=== PATIENT | male | born 1955 | race Caucasian/White ===

== ENCOUNTER 2018-01-04 19:14 | Emergency (ER) | payer OTHER ==
[~2018-01-04 19:14] MED LIST: ISOVUE-370 76%-LOCM 1 ML ONE
[2018-01-04 19:57] LABS: #Basophils 0.1 thou/uL (0.0-0.2); #Eosinphils 0.3 thou/uL (0.0-0.7); #Monocytes 0.5 thou/uL (0.11-0.59); #Neutrophils 4.4 thou/uL (1.40-6.50); %Basophils 1.1 % (0.0-1.0); %Eosinophils 3.5 % (0.0-10.0); %Lymphocytes 42.6 % (21.0-51.0); %Monocytes 5.7 % (0.0-10.0); %Neutrophils 47.2 % (42.0-75.0); Hemoglobin 14.6 g/dL (14.0-18.0); Mean Corpuscular HGB CONC 33.8 g/dL (32.0-36.0); Mean Corpuscular Hemoglobin 29.8 pg (27.0-31.0); Mean Corpuscular Volume 88.2 fL (78.0-98.0); Mean Platelet Volume 6.2 fL (7.4-10.4); Platelet Count 245 thou/uL (130-400); RBC Distribution Width 11.6 % (11.5-14.5); Red Blood Cell (RBC) Count 4.89 mill/uL (4.70-6.10); White Blood Cell (WBC) Count 9.3 thou/uL (4.8-10.8)
[2018-01-04 20:07] LABS: ALT (SGPT) 18 U/L (8-55); AST (SGOT) 24 U/L (5-34); Albumin 4.3 g/dL (3.5-5.0); Alkaline Phosphatase 117 U/L (40-150); Anion Gap 15 mmol/L (10-20); BUN (Urea Nitrogen) 7 mg/dL (8.4-25.7); Bilirubin, Total 0.4 mg/dL (0.2-1.2); CK (CPK) 181 U/L (30-200); Calc. Creatinine Clearance 0 mL/min (70-130); Calcium 8.9 mg/dL (7.8-10.44); Carbon Dioxide 20 mmol/L (22-29); Chloride 102 mmol/L (98-107); Estimated GFR-MDRD 90; Globulin 3.4 g/dL (2.4-3.5); Glucose 106 mg/dL (70-105); Lipase 22 U/L (8-78); Potassium 4.1 mmol/L (3.5-5.1); Protein, Total 7.7 g/dL (6.0-8.3); Sodium 133 mmol/L (136-145)
[2018-01-04 20:20] LABS: Bilirubin Negative (Negative); Blood, Urine Negative (Negative); Clarity CLEAR (Clear); Glucose, Urine (Dipstick) Negative (Negative); Leukocyte Negative (Negative); Nitrite Negative (Negative); Protein, Urine (Dipstick) Negative (Neg-Trace); Specific Gravity, Urine 1.003 (1.002-1.036); Urobilinogen 0.2 mg/dL (0.2-1.0)
--- NOTE | 2018-01-04 20:52 | CT ---
CT ABDOMEN AND PELVIS WITH IV CONTRAST: 01/04/18 Multiple axial tomograms obtained through the abdomen and pelvis with IV enhancement. Oral contrast w as not given. INDICATIONS: Abdominal pain. The lung bases are clear. The liver, spleen and pancreas are unremarkable. Adrenal glands appear normal. There is a 3 to 4 mm nonobstructing calculus in the lower pole collecting structures of the right ki dney. Kidneys otherwise unremarkable. No hydronephrosis or ureteral calculus identified. Urinary blad rony unremarkable. Small bowel loops appear normal. Colon unremarkable. Aorta normal caliber. No adeno luna. Review of the osseous structures reveal severe degenerative changes at the left hip. There is subchon dral cystic changes in the femoral head and prominent spurring from the femoral head and acetabulum o n the left. IMPRESSION: 1. No acute intra-abdominal process. 2. Severe degenerative changes at the left hip. POS: CALVIN
[2018-01-04] MEDS ORDERED: Cyclobenzaprine 10 MG TAB ONE (21:01)
== END 2018-01-04 21:10 | disposition home or self-care (01) ==
LOC: ERS 19:14
DX: R10.32 Left lower quadrant pain (principal); I10 Essential (primary) hypertension; F17.220 Nicotine dependence, chewing tobacco, uncomplicated
CPT/HCPCS: 74177; 80053; 81003; 82550; 83690; 85025

== ENCOUNTER 2020-01-02 20:53 | Observation (INO) | payer OTHER, SELFPAY ==
[2020-01-02 22:05] LABS: #Monocytes 0.4 thou/uL (0.11-0.59); #Neutrophils 5.4 thou/uL (1.40-6.50); %Basophils 0.3 % (0.0-1.0); %Eosinophils 0.4 % (0.0-10.0); %Lymphocytes 14.6 % (21.0-51.0); %Monocytes 5.9 % (0.0-10.0); %Neutrophils 78.8 % (42.0-75.0); Hemoglobin 15.3 g/dL (14.0-18.0); Mean Corpuscular HGB CONC 32.7 g/dL (32.0-36.0); Mean Corpuscular Hemoglobin 30.3 pg (27.0-31.0); Mean Corpuscular Volume 92.7 fL (78.0-98.0); Mean Platelet Volume 7.1 fL (7.4-10.4); Platelet Count 191 thou/uL (130-400); RBC Distribution Width 11.7 % (11.5-14.5); Red Blood Cell (RBC) Count 5.05 mill/uL (4.70-6.10); White Blood Cell (WBC) Count 6.9 thou/uL (4.8-10.8)
[2020-01-02 22:17] LABS: ALT (SGPT) 16 U/L (8-55); AST (SGOT) 16 U/L (5-34); Albumin 3.9 g/dL (3.4-4.8); Alkaline Phosphatase 99 U/L (40-110); Anion Gap 14 mmol/L (10-20); BUN (Urea Nitrogen) 10 mg/dL (8.4-25.7); Bilirubin, Total 0.6 mg/dL (0.2-1.2); CK (CPK) 80 U/L (30-200); Calc. Creatinine Clearance 0 mL/min (70-130); Calcium 8.7 mg/dL (7.8-10.44); Carbon Dioxide 22 mmol/L (23-31); Chloride 108 mmol/L (98-107); Estimated GFR-MDRD 88; Globulin 3.1 g/dL (2.4-3.5); Glucose 114 mg/dL (80-115); Potassium 4.1 mmol/L (3.5-5.1); Sodium 140 mmol/L (136-145)
[2020-01-02] MEDS ORDERED: hydrALAZINE 20 MG/ML VIAL SLOW IVP PRN (23:17)
[2020-01-02] MEDS ORDERED: Labetalol HCl 100 MG/20 ML VIAL SLOW IVP PRN (23:17)
[2020-01-02] MEDS ORDERED: Aspirin Chewable 81 MG TAB PO SCH (23:30)
--- NOTE | 2020-01-03 00:15 | HP ---
PRIMARY CARE PHYSICIAN: None. CHIEF COMPLAINT: Dizziness. HISTORY OF PRESENT ILLNESS: The patient is a 64-year-old male with past medical history significant for hypertension, alcohol abuse, and tobacco abuse, who presents to the ER with the above complaint. The patient reports developing acute onset of dizziness while ambulating at home yesterday evening, around 1800. He reports that it felt like his legs were going to fall out. He denies any headache, dysphagia, dysarthria, or focal weakness. He drank a couple beers and then went to bed, as he usual does each night His symptoms resolved. He reports after waking up the following morning, his symptoms reappeared. He also reports some associated diaphoresis. He denies any chest pain or heart palpitations. Denies any shortness of breath or cough. He denies any abdominal pain, nausea, vomiting, or diarrhea. He denies any urinary symptoms. He has not had any recent fever or chills or exposure to anybody with COVID. Because of his dizziness, it was persistent, he went to [facility]. The patient presented afebrile with an elevated blood pressure of 200/106 with a normal pulse, normal respiration, and normal SpO2. He was an NIH of 1 with some left upper extremity ataxia. CT of the head was negative and his CMP and CBC and UA were unremarkable. The patient was given meclizine, hydralazine, and labetalol , and he was transferred to the [facility]. In the [facility], he was found to have an NIH of zero. He was given a full dose aspirin. His blood pressure was 160/101. His EKG was sinus rhythm with some PACs. PAST MEDICAL HISTORY: 1. Hypertension. 2. Alcohol abuse. 3. Tobacco abuse. PAST SURGICAL HISTORY: None. SOCIAL HISTORY: The patient lives in [place] with his mother. He drinks anywhere from a 12 to 18 pack of beer a day. He smokes approximately one to one and half packs per week. He dips three cans of snuff per day. He denies any illicit drug use. 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 FAMILY HISTORY: Contributory for cardiac disease. ALLERGIES: NO KNOWN DRUG ALLERGIES. HOME MEDICATIONS: None. REVIEW OF SYSTEMS: All review of systems are negative unless otherwise stated in the HPI. PHYSICAL EXAMINATION: VITAL SIGNS: 98.6 temperature, 157/84 blood pressure, 61 pulse, 22 respirations , and 97% on room air. 0/10 pain. CONSTITUTIONAL: The patient is alert and oriented to person, place, and time. He appears comfortable, nontoxic. HEAD: Atraumatic and normocephalic. EYES: PERRLA. Extraocular muscles intact. Sclerae nonicteric. ENT: Tympanic membranes intact bilaterally. EACs clear bilaterally. Nares patent bilaterally. Oropharynx is clear. Uvula midline. Moist mucous membranes. No oral lesions. NECK: Supple. Trachea midline. No cervical adenopathy. No JVD. Full range of motion. No neck stiffness. No carotid bruits. RESPIRATORY/CHEST: Respirations are even and unlabored. Clear to auscultation. No wheezes, rhonchi, or rales. CARDIOVASCULAR: S1 and S2 appreciated. No murmurs, rubs, or gallops. ABDOMEN: Soft and nontender. Active bowel sounds. No guarding. No rigidity. No rebound tenderness. Negative Rovsing sign. Negative Elizabeth sign. No abdominal bruit auscultated. BACK: Full range of motion. No central spinous tenderness. No CVA tenderness. UPPER EXTREMITIES: Bilateral upper extremities, full range of motion. Strength normal. Sensation intact. Palpable radial pulses. LOWER EXTREMITIES: Full range of motion. Strength normal. Sensation intact. Palpable pedal pulses. No swelling. NEURO: The patient is alert and oriented to person, place, and time. Cranial nerves 2 through 12 are intact. He has no focal motor deficits. Steady gait. NIH of zero. PSYCHIATRIC: Normal affect. Alert and oriented to person, place, and time. LABS AND DIAGNOSTICS: CT of the brain was negative for any acute intracranial process. EKG is normal sinus rhythm with some PACs. Initial troponin 0.018. Sodium 140, potassium 4.1, chloride 108, carbon dioxide 22, BUN 10, creatinine 0.88, glucose 114, calcium 8.7, total bilirubin 0.6, AST 16, ALT 16, alkaline phosphatase 99, and albumin 3.9. WBC 6.9, hemoglobin 15.3, hematocrit 46.8, and platelets 191. IMPRESSION AND PLAN: 1. Dizziness, rule out stroke. We will admit the patient to the stroke floor, observation status. Expected length of stay less than two midnights. The patient presented hypertensive with a blood pressure of 200/106. NIH of 1 for left upper extremity ataxia. CT of the brain was negative. CMP and CBC and UA were unremarkable. The patient received hydralazine and labetalol with improvement in blood pressure with an SBP of 160. We will perform stroke workup. We will order MRI, carotid Doppler, and echocardiogram. We will check TSH, fasting lipid, magnesium level, urine drug screen, trend troponins, BNP, folate, and B12. We will continue aspirin and start a high intensity statin. We will consult Neurology and Physical Therapy. We will perform neuro checks and NIH scale. 2. Hypertensive urgency. The patient presented to the [facility] with a blood pressure of 200/106, improved on labetalol and hydralazine IV push. Upon presentation at the [facility], blood pressure, SBP was in the 160s. NIH was zero. EKG showed normal sinus rhythm, no LVH. Creatinine was 0.88. We will allow permissive hypertension. We will add p.r.n. labetalol and hydralazine as needed. We will get an echocardiogram and continue to monitor blood pressure. 3. Hypertension. We will monitor blood pressures and will add medications as needed. 4. Alcohol abuse. The patient reports a history of 12 to 18 beers per day. The patient's last drink was last night. The patient is unwilling to quit. We will counseling center manager on alcohol cessation. We will start the Álvaro nursing protocol. We will check a folate, B12, and Mag level. 5. Tobacco abuse. The patient smokes approximately one to one and half packs per week. The patient gives three cans of snuff per week. The patient is unwilling to quit. We will counseling center manager on tobacco cessation. Currently refuses NRT therapy. 6. Sequential compression devices for deep venous thrombosis prophylaxis. Pepcid for gastrointestinal prophylaxis. The patient is a full code. His mother Janee Medina is his MPOA. He does not know her phone number. 7. Discussed this case with Dr. Morse. Job ID: [id number] [facility]ITAL[facility]yril
[2020-01-03 02:43] LABS: Cardiac Risk 3.1 (Less than 4.5); Magnesium 2.2 mg/dL (1.6-2.6)
[2020-01-03 02:47] LABS: Thyroid Stimulating Hormone 5.2997 uIU/mL (0.35-4.94)
[2020-01-03 02:48] VITALS: BMI 28.2
[2020-01-03 02:51] LABS: Troponin I 0.026 ng/mL (< 0.028)
--- NOTE | 2020-01-03 07:57 | ULT ---
BILATERAL CAROTID DUPLEX ULTRASOUND: HISTORY: Weakness TECHNIQUE: Grayscale, color-flow and spectral Doppler ultrasound imaging of the extracranial carotid artery syst ems was performed bilaterally. FINDINGS: A mild amount of plaque is seen bilaterally. The peak systolic velocity in the right ICA measures 76 cm/s with an end-diastolic velocity of 8 cm/s and a systolic ratio of 0.85. The peak systolic velocity in the left ICA measures 48 cm/s with an end-diastolic velocity of 9 c m/s and a systolic ratio of 0.54. Flow in both vertebral arteries remains antegrade. IMPRESSION: No evidence of hemodynamically significant stenosis.
[2020-01-03] MEDS: Aspirin 81 mg Enteric Coated Tablet PO SCH (08:43)
[2020-01-03 09:16] LABS: Amphetamine Not Detected (NotDetected); Barbiturates Screen Not Detected (NotDetected); Benzodiazepine Screen Not Detected (NotDetected); Cocaine Metabolite Screen Not Detected (NotDetected); Medtox Control Line Valid? VALID (VALID); Medtox Reader # READER 4; Methadone Not Detected (NotDetected); Methamphetamine Not Detected (NotDetected); Opiate Screen Not Detected (NotDetected); Oxycodone Screen Not Detected (NotDetected); Phencyclidine (PCP) Not Detected (NotDetected); THC/Cannabinoid Screen Not Detected (NotDetected); Tricyclic Screen Not Detected (NotDetected)
--- NOTE | 2020-01-03 12:10 | MRI ---
MRI BRAIN WITHOUT CONTRAST: HISTORY: TIA FINDINGS: No restricted diffusion is seen.The ventricular size is appropriate and the basilar cisterns are moya nt. No evidence of acute infarct, hemorrhage, midline shift or abnormal extra-axial fluid collections is seen. There is mucosal disease in the paranasal sinuses. IMPRESSION: No evidence of acute intracranial process.
--- NOTE | 2020-01-03 12:14 | CON ---
NEUROLOGY CONSULTATION DATE OF CONSULTATION: 01/03/2020 REASON FOR CONSULTATION: Dizziness. HISTORY OF PRESENT ILLNESS: Mr. Medina is a 64-year-old male with medical history significant for alcohol abuse, hypertension, tobacco abuse presented to the emergency room with a history of acute onset dizziness yesterday evening around 6 p.m. According to the patient, while he was walking in his home yesterday, he felt as things were moving back and forth and [id number] and he was unable to walk in a straight line. Per patient, he drank couple of beers and went to bed. In the morning, the symptoms reappeared and he decided to come to the emergency room for further evaluation. The patient denies any focal weakness, focal paresthesias, nausea, vomiting, headache, chest pain, abdominal pain, loss of vision, blurred vision, vertigo, room spinning in front of his eyes, abnormal body movements or loss of consciousness associated with the episode. The patient denies any recent illness or fever. In the emergency room, head CT was done, which was negative. He was given meclizine, labetalol, hydralazine because his blood pressure was 150/101 and admitted to the stroke floor for further evaluation to rule out posterior circulation, TIA versus stroke. REVIEW OF SYSTEMS: All 10 systems were reviewed and were negative except pertinent positives and negatives mentioned in the HPI. PAST MEDICAL HISTORY: Hypertension. PAST SURGICAL HISTORY: None. SOCIAL HISTORY: The patient lives with his mother. Drinks 12-18 pack of beer a day. Smokes one and half packs per day. He dips three cans of snuff per day. Denies illegal drug use. 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 FAMILY HISTORY: No family history of coronary artery disease. ALLERGIES: NO KNOWN DRUG ALLERGIES. HOME MEDICATIONS: None. PHYSICAL EXAMINATION: VITAL SIGNS: Blood pressure 150/80, pulse 80, respiratory rate 18. HEENT: Atraumatic, normocephalic. NECK: Supple. ABDOMEN: Soft. CVS: Regular rate and rhythm. CHEST: Clear. NEUROLOGIC: Mental status; the patient is alert and oriented to person, place, and time. Speech is clear. Fund of knowledge is appropriate. Recent and remote memory intact. Cranial nerves 2 through 12 intact. Sensory, decreased sensation to pinprick and light touch bilaterally. Cerebellar, finger-nose testing intact. Motor, muscle tone and bulk are normal. Strength 5/5 bilaterally. Gait deferred due to patient's safety reasons. LABORATORY DATA: I reviewed the head CT which was negative for acute intracranial process. I also reviewed the carotid Dopplers which were negative for hemodynamically significant stenosis. ASSESSMENT AND PLAN: Mr. Cash Medina is consulted for acute-onset dizziness in the setting of hypertensive emergency. He does have risk factors for stroke. Continue aspirin and recommend high-intensity statin for secondary stroke prevention. Carotid Dopplers reviewed which were negative for hemodynamically significant stenosis. Permissive control of blood pressure at this time. Recommend MRI brain to rule out acute intracranial process. Telemetry, 2D echo to evaluate for left ventricular ejection fraction and to rule out cardioembolic source. Continue home medication. Continue medical management per primary team. Check fasting lipid panel, hemoglobin A1c and TSH. The patient counseled about alcohol and nicotine abuse. DVT prophylaxis. PT/OT/Speech. We will continue to follow. Thank you for the consult. Job ID: [id number] MTDD
[2020-01-03] MEDS ORDERED: Meclizine HCl 25 MG TAB PO SCH (14:45)
[2020-01-03] MEDS ORDERED: Amlodipine 10 MG TAB PO SCH (17:45)
[2020-01-03] MEDS ORDERED: Lisinopril 20 MG TAB PO SCH (17:45)
[2020-01-03] MEDS ORDERED: Atorvastatin Calcium 40 MG TAB PO SCH (21:00)
[2020-01-03] MEDS ORDERED: Erythromycin Base 0.5% Oint 1 GM TUBE EA EYE SCH (21:00)
[2020-01-03] MEDS: Meclizine HCl 25 MG TAB PO SCH (21:03)
[2020-01-04] MEDS: Meclizine HCl 25 MG TAB PO SCH (05:47)
--- NOTE | 2020-01-04 06:34 | PDOC.HOSPP ---
- Subjective Encounter Date: 01/03/20 Encounter Time: 10:00 Subjective: pt up in bed no complains - Objective Vital Signs & Weight: Vital Signs (12 hours) Temp Pulse Resp BP BP BP Pulse Ox 01/04/20 04:38 97.9 F 65 18 125/72 96 01/04/20 00:15 122/63 01/04/20 00:02 97.9 F 68 20 122/63 97 01/03/20 21:05 134/65 01/03/20 20:13 98.1 F 74 16 134/65 97 Weight Weight 202 lb 8 oz I&O: 01/02/20 01/03/20 01/04/20 06:59 06:59 06:59 Intake Total 120 1280 Balance 120 1280 Result Diagrams: 01/02/20 21:30 01/02/20 21:30 Hospitalist ROS - Review of Systems Cardiovascular: denies: chest pain, palpitations, orthopnea, paroxysmal noc. dyspnea, edema, light headedness, other Gastrointestinal: denies: nausea, vomiting, abdominal pain, diarrhea, constipation, melena, hematochezia, other Genitourinary: denies: dysuria, frequency, incontinence, hematuria, retention, other - Medication Medications: Active Medications Generic Name Dose Route Start Last Admin Trade Name Freq PRN Reason Stop Dose Admin Aspirin 81 mg 01/03/20 09:00 01/03/20 08:43 Ecotrin PO 81 mg DAILY MEGHAN Administration Atorvastatin Calcium 40 mg 01/03/20 21:00 01/03/20 21:02 Lipitor PO 40 mg HS MEGHAN Administration Meclizine HCl 25 mg 01/03/20 22:00 01/04/20 05:47 Antivert PO 25 mg Q8HR MEGHAN Administration Pantoprazole Sodium 40 mg 01/03/20 09:00 01/03/20 08:43 Protonix PO 40 mg DAILY MEGHAN Administration - Exam Neck: negative: supple, symmetric, no JVD, no thyromegaly, no lymphadenopathy, no carotid bruit, JVD Heart: negative: RRR, no murmur, no gallops, no rubs, normal peripheral pulses, irregular, diminshed peripheral pulses, murmur present, II/IV, III/IV Respiratory: negative: CTAB, no wheezes, no rales, no ronchi, normal chest expansion, no tachypnea, normal percussion, rales, rhonchi, tachypneic, wheezes Gastrointestinal: negative: soft, non-tender, non-distended, normal bowel sounds , no palpable masses, no hepatomegaly, no splenomegaly, no bruit, no guarding, no rigidity, tender to palpation, distended, diminished bowl sounds, voluntary guarding Hosp A/P (1) Alcohol abuse Code(s): F10.10 - ALCOHOL ABUSE, UNCOMPLICATED Status: Acute (2) Dizziness Code(s): R42 - DIZZINESS AND GIDDINESS Status: Acute (3) HTN (hypertension) Code(s): I10 - ESSENTIAL (PRIMARY) HYPERTENSION Status: Acute (4) Vitamin B12 deficiency Code(s): E53.8 - DEFICIENCY OF OTHER SPECIFIED B GROUP VITAMINS Status: Acute (5) Hypertensive emergency Code(s): I16.1 - HYPERTENSIVE EMERGENCY Status: Acute - Plan mri ordered, echo ordered. will continue asa/stain for now. pt educated not to drink alcohol or chew tobacco.
[2020-01-04 07:46] VITALS: BP 161/75; TEMP 98.2
--- NOTE | 2020-01-04 08:41 | PDOC.HOSPP ---
- Subjective Encounter Date: 01/03/20 Encounter Time: 10:00 Subjective: pt up in bed no complains - Objective Vital Signs & Weight: Vital Signs (12 hours) Temp Pulse Resp BP BP BP Pulse Ox 01/04/20 07:45 98.2 F 66 16 161/75 H 98 01/04/20 04:38 97.9 F 65 18 125/72 125/72 96 01/04/20 00:15 122/63 01/04/20 00:02 97.9 F 68 20 122/63 97 01/03/20 21:05 134/65 Weight Weight 202 lb 8 oz I&O: 01/03/20 01/04/20 01/05/20 06:59 06:59 06:59 Intake Total 120 1580 Balance 120 1580 Result Diagrams: 01/02/20 21:30 01/02/20 21:30 Hospitalist ROS - Review of Systems Cardiovascular: denies: chest pain, palpitations, orthopnea, paroxysmal noc. dyspnea, edema, light headedness, other Gastrointestinal: denies: nausea, vomiting, abdominal pain, diarrhea, constipation, melena, hematochezia, other Genitourinary: denies: dysuria, frequency, incontinence, hematuria, retention, other - Medication Medications: Active Medications Generic Name Dose Route Start Last Admin Trade Name Freq PRN Reason Stop Dose Admin Aspirin 81 mg 01/03/20 09:00 01/03/20 08:43 Ecotrin PO 81 mg DAILY MEGHAN Administration Atorvastatin Calcium 40 mg 01/03/20 21:00 01/03/20 21:02 Lipitor PO 40 mg HS MEGHAN Administration Meclizine HCl 25 mg 01/03/20 22:00 01/04/20 05:47 Antivert PO 25 mg Q8HR MEGHAN Administration Pantoprazole Sodium 40 mg 01/03/20 09:00 01/03/20 08:43 Protonix PO 40 mg DAILY MEGHAN Administration - Exam Neck: negative: supple, symmetric, no JVD, no thyromegaly, no lymphadenopathy, no carotid bruit, JVD Heart: negative: RRR, no murmur, no gallops, no rubs, normal peripheral pulses, irregular, diminshed peripheral pulses, murmur present, II/IV, III/IV Respiratory: negative: CTAB, no wheezes, no rales, no ronchi, normal chest expansion, no tachypnea, normal percussion, rales, rhonchi, tachypneic, wheezes Gastrointestinal: negative: soft, non-tender, non-distended, normal bowel sounds , no palpable masses, no hepatomegaly, no splenomegaly, no bruit, no guarding, no rigidity, tender to palpation, distended, diminished bowl sounds, voluntary guarding Hosp A/P (1) Dizziness Code(s): R42 - DIZZINESS AND GIDDINESS (2) Alcohol abuse Code(s): F10.10 - ALCOHOL ABUSE, UNCOMPLICATED Status: Acute (3) HTN (hypertension) Code(s): I10 - ESSENTIAL (PRIMARY) HYPERTENSION Status: Acute (4) Vitamin B12 deficiency Code(s): E53.8 - DEFICIENCY OF OTHER SPECIFIED B GROUP VITAMINS Status: Acute - Plan will start pt on vit 12. pt's mri was normal. carotid was normal. pt has been advised against drinking. He drinks 6-12- at times 18 pack a day of beer. He also chews tobacco 2 cans.
[2020-01-04] MEDS ORDERED: Cyanocobalamin 1000 MCG/ML VIAL IM SCH (09:00)
[2020-01-04] MEDS ORDERED: Cyanocobalamin (Vitamin B-12) 1,000 MCG TAB PO SCH (09:00)
[2020-01-04] MEDS ORDERED: Amlodipine 10 MG TAB PO SCH (09:00)
[2020-01-04] MEDS ORDERED: Lisinopril 20 MG TAB PO SCH (09:00)
[2020-01-04] MEDS: Aspirin 81 mg Enteric Coated Tablet PO SCH (09:50)
--- NOTE | 2020-01-04 20:48 | DIS ---
DATE OF ADMISSION: 01/02/2020 DATE OF DISCHARGE: 01/04/2020 DISCHARGE DIAGNOSES: 1. Dizziness. 2. Alcohol abuse. 3. Hypertensive emergency, resolved. 4. Tobacco abuse. HOSPITAL COURSE: The patient is a 64-year-old male, who initially presented to the hospital with dizziness. He was found to have significant elevated blood pressure. He was ruled out for a stroke. His brain MRI was negative for any acute strokes. He was also seen by Neurology. He had carotid Dopplers and an echocardiogram. His carotid Dopplers did not show any hemodynamically significant stenosis. His echocardiogram indicated an EF of 50% to 55%, with mild to moderate aortic regurgitation and mild mitral regurgitation. The patient at this time was counseled against alcohol and tobacco abuse. However, he stated that he is going to do whatever he has been doing for since he was 15 years old. I did check a vitamin B12, which was very low at 195. His TSH was 5.2, however, free T4 was 0.9. He has been educated on diet, exercise, and weight loss given his mildly elevated triglycerides. HOME MEDICATIONS: 1. Lisinopril 20 mg daily. 2. Vitamin B12 of 25 mcg daily. 3. Aspirin 81 mg daily. 4. Norvasc 10 mg daily. 5. Erythromycin base ointment for redness of his eyes, possible conjunctivitis, however, this has been going on for months. PHYSICAL EXAMINATION: VITAL SIGNS: Temperature of 98.2, pulse 66, respiratory rate 16, O2 saturation 98% on room air, and blood pressure 161/75. GENERAL: He is awake, alert, and oriented x3. He does not appear in distress. CV: S1 and S2 present. No murmurs, rubs, or gallops. I have advised him that if he stops drinking or even cuts it down that might significantly help his blood pressure, however, the patient states that he does not want to do so. Job ID: [id number]
== END 2020-01-04 12:16 | disposition home or self-care (01) ==
LOC: ERS 20:53 → 2SE 22:44
PROVIDERS: ADMIT Internal Medicine; ATTEND Internal Medicine
DX: R42 Dizziness and giddiness (principal); F10.10 Alcohol abuse, uncomplicated; I16.1 Hypertensive emergency; I10 Essential (primary) hypertension; F17.210 Nicotine dependence, cigarettes, uncomplicated; F17.220 Nicotine dependence, chewing tobacco, uncomplicated; E53.8 Deficiency of other specified B group vitamins; I08.0 Rheumatic disorders of both mitral and aortic valves
CPT/HCPCS: 36415; 70551; 80053; 80061; 80306; 82550; 82607; 82746; 83735; 83880; 84439; 84443; 84484; 85025; 93005; 93306; 93880; G0378

== ENCOUNTER 2021-12-20 16:50 | Observation (INO) | payer BC, SELFPAY ==
[2021-12-20] MEDS ORDERED: Meclizine HCl 25 MG TAB ONE (17:31)
[2021-12-20] MEDS ORDERED: Lorazepam 2 MG/ML VIAL ONE (17:31)
[2021-12-20 18:01] LABS: #Lymphocytes 1.3 thou/uL (1.20-3.40); #Monocytes 0.6 thou/uL (0.11-0.59); #Neutrophils 5.8 thou/uL (1.40-6.50); %Basophils 0.5 % (0.0-1.0); %Eosinophils 0.6 % (0.0-10.0); %Lymphocytes 16.8 % (21.0-51.0); %Monocytes 7.5 % (0.0-10.0); %Neutrophils 74.6 % (42.0-75.0); Hemoglobin 13.8 g/dL (14.0-18.0); Mean Corpuscular HGB CONC 34.4 g/dL (32.0-36.0); Mean Corpuscular Hemoglobin 31.4 pg (27.0-31.0); Mean Corpuscular Volume 91.3 fL (78.0-98.0); Mean Platelet Volume 6.6 fL (7.4-10.4); Platelet Count 198 thou/uL (130-400); RBC Distribution Width 11.5 % (11.5-14.5); White Blood Cell (WBC) Count 7.8 thou/uL (4.8-10.8)
[2021-12-20 18:22] LABS: ALT (SGPT) 39 U/L (8-55); AST (SGOT) 39 U/L (5-34); Albumin 4.4 g/dL (3.4-4.8); Alkaline Phosphatase 79 U/L (40-110); Anion Gap 18 mmol/L (10-20); BUN (Urea Nitrogen) 8 mg/dL (8.4-25.7); Bilirubin, Total 1.3 mg/dL (0.2-1.2); Calc. Creatinine Clearance 0 mL/min (70-130); Calcium 9.6 mg/dL (7.8-10.44); Carbon Dioxide 27 mmol/L (23-31); Chloride 92 mmol/L (98-107); Globulin 3.4 g/dL (2.4-3.5); Glucose 107 mg/dL (80-115); Lipase 12 U/L (8-78); Magnesium 1.9 mg/dL (1.6-2.6); Potassium 4.2 mmol/L (3.5-5.1); Protein, Total 7.8 g/dL (5.8-8.1); Sodium 133 mmol/L (136-145)
[2021-12-20 18:36] LABS: Bilirubin Negative (Negative); Blood, Urine Negative (Negative); Clarity Clear (Clear); Glucose, Urine (Dipstick) Normal (Negative); Ketone, Urine Trace mg/dL (Negative); Leukocyte Negative Leu/uL (Negative); Nitrite Negative (Negative); Protein, Urine (Dipstick) Negative (Neg-Trace); Specific Gravity, Urine 1.018 (1.002-1.036); Urobilinogen Normal mg/dL (Less than 2)
[2021-12-20] MEDS ORDERED: Aspirin 325 MG TAB ONE (19:11)
[2021-12-20] MEDS ORDERED: Bisacodyl 5 MG TAB PO PRN (19:45)
[2021-12-20] MEDS ORDERED: Ondansetron PF 4 MG/2 ML Vial IVP PRN (19:45)
[2021-12-20] MEDS ORDERED: HYDROcodone/Acetaminophen 5/325 mg Tablet PO PRN (19:45)
[2021-12-20] MEDS ORDERED: Acetaminophen 325 MG TAB PO PRN (19:45)
[2021-12-20] MEDS ORDERED: hydrALAZINE 20 MG/ML VIAL SLOW IVP PRN (19:45)
[2021-12-20] MEDS ORDERED: Zolpidem Tartrate 5 MG TAB PO PRN (19:45)
[2021-12-20] MEDS ORDERED: Loperamide HCl 2 MG CAP PO PRN (19:45)
[2021-12-20] MEDS ORDERED: Lorazepam 2 MG/ML VIAL SLOW IVP PRN (19:56)
[2021-12-20] MEDS ORDERED: Nicotine 21 MG PATCH TD SCH (21:00)
[2021-12-20] MEDS ORDERED: Lisinopril 20 MG TAB PO SCH (21:00)
[2021-12-20] MEDS: Famotidine 20 MG TAB PO SCH (21:14)
[2021-12-20] MEDS: Sodium Chloride 0.9% 1,000 ML IV SCH (21:15)
[2021-12-20 22:06] VITALS: BMI 27.1
[2021-12-21 05:46] LABS: #Eosinphils 0.3 thou/uL (0.0-0.7); #Lymphocytes 1.6 thou/uL (1.20-3.40); #Monocytes 0.5 thou/uL (0.11-0.59); #Neutrophils 3.3 thou/uL (1.40-6.50); %Basophils 0.4 % (0.0-1.0); %Eosinophils 4.5 % (0.0-10.0); %Lymphocytes 27.8 % (21.0-51.0); %Monocytes 8.8 % (0.0-10.0); %Neutrophils 58.6 % (42.0-75.0); Hemoglobin 12.8 g/dL (14.0-18.0); Mean Corpuscular HGB CONC 33.6 g/dL (32.0-36.0); Mean Corpuscular Volume 92.1 fL (78.0-98.0); Mean Platelet Volume 6.4 fL (7.4-10.4); Platelet Count 169 thou/uL (130-400); RBC Distribution Width 11.4 % (11.5-14.5); Red Blood Cell (RBC) Count 4.15 mill/uL (4.70-6.10); White Blood Cell (WBC) Count 5.7 thou/uL (4.8-10.8)
[2021-12-21 06:20] LABS: ALT (SGPT) 29 U/L (8-55); AST (SGOT) 31 U/L (5-34); Albumin 3.4 g/dL (3.4-4.8); Alkaline Phosphatase 61 U/L (40-110); Anion Gap 12 mmol/L (10-20); BUN (Urea Nitrogen) 10 mg/dL (8.4-25.7); Bilirubin, Total 1.1 mg/dL (0.2-1.2); Calc. Creatinine Clearance 113 mL/min (70-130); Calcium 8.6 mg/dL (7.8-10.44); Carbon Dioxide 29 mmol/L (23-31); Cardiac Risk 1.8 (Less than 4.5); Chloride 98 mmol/L (98-107); Cholesterol 163 mg/dl (< 200 Desired); Globulin 2.6 g/dL (2.4-3.5); Glucose 89 mg/dL (80-115); HDL Cholesterol 91 mg/dL (>60 Neg Risk); LDL Cholesterol, Calculated 64 mg/dL; Potassium 3.6 mmol/L (3.5-5.1); Sodium 135 mmol/L (136-145); Triglycerides 41 mg/dL (Less than 150)
[2021-12-21] MEDS ORDERED: Enoxaparin Sodium 40 MG/0.4 ML SYRINGE SC SCH (09:00)
[2021-12-21] MEDS ORDERED: Aspirin 81 mg Enteric Coated Tablet PO SCH (09:00)
[2021-12-21] MEDS ORDERED: Lisinopril 20 MG TAB PO SCH ×2 (09:00)
[2021-12-21] MEDS: Famotidine 20 MG TAB PO SCH (09:23)
[2021-12-21 16:09] VITALS: BP 141/74; TEMP 98.2
[2021-12-21] MEDS: Sodium Chloride 0.9% 1,000 ML IV SCH (18:13)
[2021-12-21] MEDS ORDERED: Meclizine HCl 25 MG TAB PO SCH (18:30)
== END 2021-12-21 19:30 | disposition home or self-care (01) ==
LOC: ERS 16:50 → NEURO 19:23
PROVIDERS: ADMIT Family Medicine; ATTEND Family Medicine
DX: R42 Dizziness and giddiness (principal); I16.1 Hypertensive emergency; I11.9 Hypertensive heart disease without heart failure; F17.220 Nicotine dependence, chewing tobacco, uncomplicated; F10.10 Alcohol abuse, uncomplicated; R60.0 Localized edema; J32.8 Other chronic sinusitis; E53.8 Deficiency of other specified B group vitamins; Z79.899 Other long term (current) drug therapy; Z20.822 Contact with and (suspected) exposure to COVID-19; Z91.14 Patient's other noncompliance with medication regimen
CPT/HCPCS: 36415; 70450; 70551; 71045; 80053; 80061; 81003; 83690; 83735; 83880; 84443; 84484; 85025; 93005; 93880; 96361; 96372; 96374; G0378; J1650; J2060; J7050; U0003; U0005

== ENCOUNTER 2022-08-07 17:11 | Inpatient (IN) | payer MEDICARE, SELFPAY ==
[2022-08-07 17:50] LABS: #Basophils 0.1 thou/uL (0.0-0.2); #Eosinphils 0.1 thou/uL (0.0-0.7); #Lymphocytes 0.9 thou/uL (1.20-3.40); #Monocytes 0.7 thou/uL (0.11-0.59); #Neutrophils 6.2 thou/uL (1.40-6.50); %Basophils 0.8 % (0.0-1.0); %Eosinophils 1.3 % (0.0-10.0); %Lymphocytes 10.8 % (21.0-51.0); %Monocytes 8.6 % (0.0-10.0); %Neutrophils 78.5 % (42.0-75.0); Hemoglobin 13.8 g/dL (14.0-18.0); Mean Corpuscular HGB CONC 33.6 g/dL (32.0-36.0); Mean Corpuscular Hemoglobin 29.5 pg (27.0-31.0); Mean Corpuscular Volume 87.8 fl (78.0-98.0); Mean Platelet Volume 6.4 fL (7.4-10.4); Platelet Count 255 10x3/uL (130-400); Red Blood Cell (RBC) Count 4.66 mill/uL (4.70-6.10); White Blood Cell (WBC) Count 7.9 10x3/uL (4.8-10.8)
[2022-08-07 18:02] LABS: PTT 31.7 sec (22.9-36.1); Prothrombin Time 13.7 sec (12.0-14.7)
[2022-08-07] MEDS ORDERED: Clindamycin/D5W 900 mg/50 ml Premix Bag ONE (18:12)
[2022-08-07 18:17] LABS: ALT (SGPT) 15 U/L (8-55); AST (SGOT) 33 U/L (5-34); Albumin 3.9 g/dL (3.4-4.8); Alkaline Phosphatase 100 U/L (40-110); Anion Gap 15 mmol/L (10-20); BUN (Urea Nitrogen) 5 mg/dL (8.4-25.7); Bilirubin, Total 1.4 mg/dL (0.2-1.2); Calc. Creatinine Clearance 0 mL/min (70-130); Carbon Dioxide 25 mmol/L (23-31); Chloride 88 mmol/L (98-107); Estimated GFR 102; Globulin 3.5 g/dL (2.4-3.5); Glucose 98 mg/dL (80-115); Potassium 4.2 mmol/L (3.5-5.1); Protein, Total 7.4 g/dL (5.8-8.1); Sodium 124 mmol/L (136-145)
[2022-08-07] MEDS ORDERED: Vancomycin 1.5 GRAM/300 ML BAG 1.5 GM in Premix Bag 1 BAG IVPB SCH (18:30)
[2022-08-07 19:24] LABS: Bilirubin Negative (Negative); Blood, Urine Negative (Negative); Clarity Clear (Clear); Glucose, Urine (Dipstick) Normal (Negative); Ketone, Urine 10 mg/dL (Negative); Leukocyte Negative Leu/uL (Negative); Nitrite Negative (Negative); Protein, Urine (Dipstick) Negative (Neg-Trace); Specific Gravity, Urine 1.012 (1.002-1.036); Urobilinogen Normal mg/dL (Less than 2)
[2022-08-07] MEDS ORDERED: Ketorolac Tromethamine 30 MG/ML VIAL ONE (20:15)
[2022-08-07] MEDS ORDERED: Lorazepam 2 MG/ML VIAL IM PRN (22:15)
[2022-08-07] MEDS ORDERED: Electrolyte Replacement Protocol 1 EACH FS SCH (22:15)
[2022-08-07] MEDS ORDERED: Senokot S 8.6-50 MG TAB PO PRN (22:15)
[2022-08-07] MEDS ORDERED: Lorazepam 1 MG TAB PO PRN (22:15)
[2022-08-07] MEDS ORDERED: Ondansetron ODT 4 MG TAB PO PRN ×2 (22:15)
[2022-08-07 22:22] LABS: SARS-CoV-2 NAA Rapid Test Not Detected (NotDetected)
[2022-08-07 22:36] LABS: Amphetamine Not Detected (NotDetected); Barbiturates Screen Not Detected (NotDetected); Benzodiazepine Screen Not Detected (NotDetected); Cocaine Metabolite Screen Not Detected (NotDetected); Methadone Not Detected (NotDetected); Methamphetamine Not Detected (NotDetected); Opiate Screen Not Detected (NotDetected); Oxycodone Screen Not Detected (NotDetected); Phencyclidine (PCP) Not Detected (NotDetected); THC/Cannabinoid Screen Not Detected (NotDetected); Tricyclic Screen Not Detected (NotDetected)
[2022-08-07 22:52] LABS: Magnesium 1.7 mg/dL (1.6-2.6); Phosphorus 3.1 mg/dL (2.3-4.7)
[2022-08-07] MEDS ORDERED: Lorazepam 1 MG TAB ONE (23:32)
[2022-08-07] MEDS ORDERED: Nicotine 14 MG PATCH ONE (23:33)
[2022-08-07] MEDS: Thiamine HCl 200 MG/2 ML VIAL SLOW IVP SCH (23:42)
[2022-08-07] MEDS: Lorazepam 1 MG TAB PO SCH (23:42)
[2022-08-07] MEDS: Nicotine 14 MG PATCH TD SCH (23:42)
[2022-08-08] MEDS ORDERED: Magnesium 2 GM/50 ML(in water) 2 GM in Premix Bag 1 BAG IVPB SCH (00:30)
[2022-08-08] MEDS ORDERED: Magnesium 2 GM/50 ML BAG (IN WATER) ONE (00:46)
[2022-08-08 06:46] LABS: #Eosinphils 0.3 thou/uL (0.0-0.7); #Lymphocytes 1.2 thou/uL (1.20-3.40); #Monocytes 0.9 thou/uL (0.11-0.59); #Neutrophils 5.8 thou/uL (1.40-6.50); %Basophils 0.5 % (0.0-1.0); %Eosinophils 3.5 % (0.0-10.0); %Lymphocytes 14.4 % (21.0-51.0); %Monocytes 10.7 % (0.0-10.0); %Neutrophils 70.9 % (42.0-75.0); Hemoglobin 13.6 g/dL (14.0-18.0); Mean Corpuscular HGB CONC 32.5 g/dL (32.0-36.0); Mean Corpuscular Volume 89.5 fl (78.0-98.0); Mean Platelet Volume 6.5 fL (7.4-10.4); Platelet Count 244 10x3/uL (130-400); White Blood Cell (WBC) Count 8.2 10x3/uL (4.8-10.8)
[2022-08-08 07:06] LABS: Anion Gap 12 mmol/L (10-20); BUN (Urea Nitrogen) 4 mg/dL (8.4-25.7); Calc. Creatinine Clearance 0 mL/min (70-130); Calcium 8.4 mg/dL (7.8-10.44); Carbon Dioxide 23 mmol/L (23-31); Chloride 93 mmol/L (98-107); Estimated GFR 103; Glucose 95 mg/dL (80-115); Potassium 3.7 mmol/L (3.5-5.1); Sodium 124 mmol/L (136-145)
[2022-08-08] MEDS: Lorazepam 1 MG TAB PO SCH ×4 (08:12→23:15)
[2022-08-08] MEDS ORDERED: Vancomycin 1.5 GRAM/300 ML BAG IVPB SCH (09:00)
[2022-08-08 11:42] LABS: Syphilis Antibody Nonreactive (Nonreactive); Syphilis Antibody Index 0.04 S/CO (<1.00 Non-Reactive)
[2022-08-08] MEDS ORDERED: Lorazepam 1 MG TAB ONE (13:12)
[2022-08-08] MEDS ORDERED: Amlodipine 5 MG TAB ONE (13:13)
[2022-08-08] MEDS ORDERED: Lisinopril 10 MG TAB ONE (13:13)
[2022-08-08] MEDS ORDERED: Famotidine 20 MG TAB ONE (13:13)
[2022-08-08] MEDS ORDERED: Folic Acid 1 MG TAB ONE (13:13)
[2022-08-08] MEDS: Amlodipine 10 MG TAB PO SCH (13:16)
[2022-08-08] MEDS: Lisinopril 20 MG TAB PO SCH (13:17)
[2022-08-08] MEDS: Folic Acid 1 MG TAB PO SCH (13:17)
[2022-08-08] MEDS: Famotidine 20 MG TAB PO SCH ×2 (13:17→23:15)
[2022-08-08] MEDS: VANCOMYCIN 1.25 GM/250 ML BAG 1.25 GM in Premix Bag 1 BAG IVPB SCH (14:39)
[2022-08-08] MEDS: Multivit, Therapeutic 1 TAB PO SCH (14:41)
[2022-08-08 16:49] VITALS: BMI 30.2
[2022-08-08] MEDS ORDERED: Lorazepam 1 MG TAB PO PRN (22:15)
[2022-08-08] MEDS: Erythromycin Base 0.5% Oint 1 GM TUBE EA EYE SCH (23:14)
[2022-08-08] MEDS: Nicotine 14 MG PATCH TD SCH (23:15)
[2022-08-08] MEDS: Thiamine HCl 200 MG/2 ML VIAL SLOW IVP SCH (23:15)
[2022-08-09] MEDS: VANCOMYCIN 1.25 GM/250 ML BAG 1.25 GM in Premix Bag 1 BAG IVPB SCH ×2 (02:14→13:56)
[2022-08-09 04:44] LABS: #Eosinphils 0.3 thou/uL (0.0-0.7); #Lymphocytes 1.2 thou/uL (1.20-3.40); #Monocytes 0.6 thou/uL (0.11-0.59); #Neutrophils 4.3 thou/uL (1.40-6.50); %Basophils 0.4 % (0.0-1.0); %Eosinophils 4.3 % (0.0-10.0); %Lymphocytes 18.6 % (21.0-51.0); %Monocytes 9.9 % (0.0-10.0); %Neutrophils 66.8 % (42.0-75.0); Hemoglobin 12.2 g/dL (14.0-18.0); Mean Corpuscular HGB CONC 33.1 g/dL (32.0-36.0); Mean Corpuscular Hemoglobin 29.4 pg (27.0-31.0); Mean Corpuscular Volume 88.9 fl (78.0-98.0); Platelet Count 238 10x3/uL (130-400); Red Blood Cell (RBC) Count 4.15 mill/uL (4.70-6.10); White Blood Cell (WBC) Count 6.5 10x3/uL (4.8-10.8)
[2022-08-09 05:03] LABS: ALT (SGPT) 14 U/L (8-55); AST (SGOT) 32 U/L (5-34); Alkaline Phosphatase 68 U/L (40-110); Anion Gap 11 mmol/L (10-20); BUN (Urea Nitrogen) 4 mg/dL (8.4-25.7); Calc. Creatinine Clearance 147 mL/min (70-130); Carbon Dioxide 27 mmol/L (23-31); Chloride 95 mmol/L (98-107); Estimated GFR 105; Globulin 2.7 g/dL (2.4-3.5); Glucose 98 mg/dL (80-115); Potassium 3.5 mmol/L (3.5-5.1); Protein, Total 5.7 g/dL (5.8-8.1); Sodium 129 mmol/L (136-145)
[2022-08-09] MEDS: Lorazepam 1 MG TAB PO SCH ×4 (05:37→21:02)
[2022-08-09] MEDS ORDERED: Potassium Chloride 20 MEQ TAB PO SCH (08:00)
[2022-08-09] MEDS: Multivit, Therapeutic 1 TAB PO SCH (09:36)
[2022-08-09] MEDS: Cyanocobalamin (Vitamin B-12) 1,000 MCG TAB PO SCH (09:37)
[2022-08-09] MEDS: Meclizine HCl 25 MG TAB PO SCH (09:38)
[2022-08-09] MEDS: Famotidine 20 MG TAB PO SCH ×2 (09:38→20:57)
[2022-08-09] MEDS: Amlodipine 10 MG TAB PO SCH (09:38)
[2022-08-09] MEDS: Folic Acid 1 MG TAB PO SCH (09:38)
[2022-08-09] MEDS: Lisinopril 20 MG TAB PO SCH (09:39)
[2022-08-09] MEDS: Erythromycin Base 0.5% Oint 1 GM TUBE EA EYE SCH ×4 (09:39→21:01)
[2022-08-09] MEDS: Terbinafine 1% 30 GM TUBE TOP SCH ×2 (10:49→21:01)
[2022-08-09 12:41] LABS: Vancomycin, Trough 9.2 ug/mL
[2022-08-09] MEDS: Cefepime 2 GM in Sodium Chloride 0.9% 100 ML IVPB SCH (13:56)
[2022-08-09] MEDS: Acetaminophen 325 MG TAB PO PRN (20:56)
[2022-08-09] MEDS: Lorazepam 0.5 MG TAB PO SCH (20:57)
[2022-08-09] MEDS ORDERED: Lorazepam 1 MG TAB PO PRN (22:15)
[2022-08-09] MEDS: Thiamine HCl 200 MG/2 ML VIAL SLOW IVP SCH (23:54)
[2022-08-09] MEDS: Nicotine 14 MG PATCH TD SCH (23:54)
[2022-08-10] MEDS: VANCOMYCIN 1.25 GM/250 ML BAG 1.25 GM in Premix Bag 1 BAG IVPB SCH ×2 (01:37→14:54)
[2022-08-10] MEDS: Acetaminophen 325 MG TAB PO PRN ×2 (04:08→15:23)
[2022-08-10] MEDS: Lorazepam 0.5 MG TAB PO SCH ×4 (04:23→20:05)
[2022-08-10 05:14] LABS: #Basophils 0.1 thou/uL (0.0-0.2); #Eosinphils 0.3 thou/uL (0.0-0.7); #Lymphocytes 1.4 thou/uL (1.20-3.40); #Monocytes 0.7 thou/uL (0.11-0.59); #Neutrophils 4.1 thou/uL (1.40-6.50); %Basophils 0.8 % (0.0-1.0); %Eosinophils 4.7 % (0.0-10.0); %Lymphocytes 21.2 % (21.0-51.0); %Monocytes 11.2 % (0.0-10.0); %Neutrophils 62.1 % (42.0-75.0); Hemoglobin 11.9 g/dL (14.0-18.0); Mean Corpuscular HGB CONC 32.5 g/dL (32.0-36.0); Mean Corpuscular Hemoglobin 29.2 pg (27.0-31.0); Mean Platelet Volume 6.2 fL (7.4-10.4); Platelet Count 252 10x3/uL (130-400); RBC Distribution Width 10.8 % (11.5-14.5); Red Blood Cell (RBC) Count 4.07 mill/uL (4.70-6.10); White Blood Cell (WBC) Count 6.6 10x3/uL (4.8-10.8)
[2022-08-10 05:20] LABS: Hemoglobin A1c 4.7 % (4.0-6.0)
[2022-08-10 05:42] LABS: Anion Gap 11 mmol/L (10-20); BUN (Urea Nitrogen) 5 mg/dL (8.4-25.7); Calc. Creatinine Clearance 142 mL/min (70-130); Calcium 8.3 mg/dL (7.8-10.44); Carbon Dioxide 28 mmol/L (23-31); Chloride 99 mmol/L (98-107); Estimated GFR 104; Glucose 105 mg/dL (80-115); Sodium 134 mmol/L (136-145)
[2022-08-10] MEDS: Amlodipine 10 MG TAB PO SCH (09:19)
[2022-08-10] MEDS: Famotidine 20 MG TAB PO SCH ×2 (09:20→20:00)
[2022-08-10] MEDS: Folic Acid 1 MG TAB PO SCH (09:20)
[2022-08-10] MEDS: Multivit, Therapeutic 1 TAB PO SCH (09:20)
[2022-08-10] MEDS: Meclizine HCl 25 MG TAB PO SCH (09:20)
[2022-08-10] MEDS: Lisinopril 20 MG TAB PO SCH (09:20)
[2022-08-10] MEDS: Cyanocobalamin (Vitamin B-12) 1,000 MCG TAB PO SCH (09:20)
[2022-08-10] MEDS: Erythromycin Base 0.5% Oint 1 GM TUBE EA EYE SCH ×4 (09:21→20:08)
[2022-08-10] MEDS: Terbinafine 1% 30 GM TUBE TOP SCH ×2 (09:21→20:08)
[2022-08-10] MEDS: Cefepime 2 GM in Sodium Chloride 0.9% 100 ML IVPB SCH ×2 (14:54)
[2022-08-10] MEDS: Thiamine 100 MG TAB PO SCH (21:41)
[2022-08-10] MEDS ORDERED: Lorazepam 0.5 MG TAB PO PRN (22:15)
[2022-08-10] MEDS: Nicotine 14 MG PATCH TD SCH (22:23)
[2022-08-11] MEDS: Cefepime 2 GM in Sodium Chloride 0.9% 100 ML IVPB SCH ×2 (00:23→13:53)
[2022-08-11] MEDS: VANCOMYCIN 1.25 GM/250 ML BAG 1.25 GM in Premix Bag 1 BAG IVPB SCH ×2 (00:23→14:38)
[2022-08-11 05:24] LABS: Anion Gap 10 mmol/L (10-20); BUN (Urea Nitrogen) 7 mg/dL (8.4-25.7); Calc. Creatinine Clearance 136 mL/min (70-130); Calcium 8.3 mg/dL (7.8-10.44); Carbon Dioxide 28 mmol/L (23-31); Chloride 99 mmol/L (98-107); Estimated GFR 103; Glucose 97 mg/dL (80-115); Potassium 3.9 mmol/L (3.5-5.1); Sodium 133 mmol/L (136-145)
[2022-08-11] MEDS: Famotidine 20 MG TAB PO SCH ×2 (08:56→19:47)
[2022-08-11] MEDS: Meclizine HCl 25 MG TAB PO SCH (08:56)
[2022-08-11] MEDS: Cyanocobalamin (Vitamin B-12) 1,000 MCG TAB PO SCH (08:56)
[2022-08-11] MEDS: Lisinopril 20 MG TAB PO SCH (08:56)
[2022-08-11] MEDS: Folic Acid 1 MG TAB PO SCH (08:57)
[2022-08-11] MEDS: Terbinafine 1% 30 GM TUBE TOP SCH ×2 (08:57→19:47)
[2022-08-11] MEDS: Multivit, Therapeutic 1 TAB PO SCH (08:57)
[2022-08-11] MEDS: Amlodipine 10 MG TAB PO SCH (08:57)
[2022-08-11] MEDS: Erythromycin Base 0.5% Oint 1 GM TUBE EA EYE SCH ×4 (09:03→19:46)
[2022-08-11] MEDS: Acetaminophen 325 MG TAB PO PRN (11:39)
[2022-08-11 13:15] LABS: Vancomycin, Trough 13.7 ug/mL
[2022-08-11] MEDS: Nicotine 14 MG PATCH TD SCH (19:47)
[2022-08-11] MEDS: Thiamine 100 MG TAB PO SCH (19:47)
[2022-08-12] MEDS: Cefepime 2 GM in Sodium Chloride 0.9% 100 ML IVPB SCH ×2 (00:54→12:53)
[2022-08-12] MEDS: VANCOMYCIN 1.25 GM/250 ML BAG 1.25 GM in Premix Bag 1 BAG IVPB SCH ×2 (00:55→14:23)
[2022-08-12 04:56] LABS: Anion Gap 11 mmol/L (10-20); BUN (Urea Nitrogen) 9 mg/dL (8.4-25.7); Calc. Creatinine Clearance 145 mL/min (70-130); Calcium 8.5 mg/dL (7.8-10.44); Carbon Dioxide 26 mmol/L (23-31); Chloride 98 mmol/L (98-107); Estimated GFR 105; Glucose 95 mg/dL (80-115); Sodium 131 mmol/L (136-145)
[2022-08-12] MEDS: Cyanocobalamin (Vitamin B-12) 1,000 MCG TAB PO SCH (09:03)
[2022-08-12] MEDS: Famotidine 20 MG TAB PO SCH ×2 (09:05→21:32)
[2022-08-12] MEDS: Amlodipine 10 MG TAB PO SCH (09:05)
[2022-08-12] MEDS: Lisinopril 20 MG TAB PO SCH (09:05)
[2022-08-12] MEDS: Multivit, Therapeutic 1 TAB PO SCH (09:05)
[2022-08-12] MEDS: Erythromycin Base 0.5% Oint 1 GM TUBE EA EYE SCH ×4 (09:06→21:32)
[2022-08-12] MEDS: Folic Acid 1 MG TAB PO SCH (09:06)
[2022-08-12] MEDS: Terbinafine 1% 30 GM TUBE TOP SCH ×2 (09:07→21:31)
[2022-08-12] MEDS: Meclizine HCl 25 MG TAB PO SCH (09:11)
[2022-08-12] MEDS: Thiamine 100 MG TAB PO SCH (21:32)
[2022-08-12] MEDS: Nicotine 14 MG PATCH TD SCH (21:33)
[2022-08-13] MEDS: Cefepime 2 GM in Sodium Chloride 0.9% 100 ML IVPB SCH ×2 (01:23→12:13)
[2022-08-13] MEDS: Acetaminophen 325 MG TAB PO PRN ×2 (04:09→19:30)
[2022-08-13 05:24] LABS: Anion Gap 11 mmol/L (10-20); BUN (Urea Nitrogen) 10 mg/dL (8.4-25.7); Calc. Creatinine Clearance 142 mL/min (70-130); Calcium 8.6 mg/dL (7.8-10.44); Carbon Dioxide 25 mmol/L (23-31); Chloride 98 mmol/L (98-107); Estimated GFR 104; Glucose 94 mg/dL (80-115); Potassium 4.3 mmol/L (3.5-5.1); Sodium 130 mmol/L (136-145)
[2022-08-13] MEDS: Cyanocobalamin (Vitamin B-12) 1,000 MCG TAB PO SCH (07:56)
[2022-08-13] MEDS: Meclizine HCl 25 MG TAB PO SCH (07:56)
[2022-08-13] MEDS: Lisinopril 20 MG TAB PO SCH (07:57)
[2022-08-13] MEDS: Famotidine 20 MG TAB PO SCH ×2 (07:57→21:50)
[2022-08-13] MEDS: Amlodipine 10 MG TAB PO SCH (07:57)
[2022-08-13] MEDS: Folic Acid 1 MG TAB PO SCH (07:58)
[2022-08-13] MEDS: Erythromycin Base 0.5% Oint 1 GM TUBE EA EYE SCH ×4 (07:58→21:50)
[2022-08-13] MEDS: Multivit, Therapeutic 1 TAB PO SCH (07:58)
[2022-08-13] MEDS: Terbinafine 1% 30 GM TUBE TOP SCH ×2 (07:58→21:50)
[2022-08-13] MEDS: Cefdinir 300 MG CAP PO SCH (21:49)
[2022-08-13] MEDS: Nicotine 14 MG PATCH TD SCH (21:50)
[2022-08-13] MEDS: Thiamine 100 MG TAB PO SCH (21:50)
[2022-08-14] MEDS: Cyanocobalamin (Vitamin B-12) 1,000 MCG TAB PO SCH (09:24)
[2022-08-14] MEDS: Cefdinir 300 MG CAP PO SCH ×2 (09:24→21:43)
[2022-08-14] MEDS: Famotidine 20 MG TAB PO SCH ×2 (09:24→21:42)
[2022-08-14] MEDS: Meclizine HCl 25 MG TAB PO SCH (09:28)
[2022-08-14] MEDS: Multivit, Therapeutic 1 TAB PO SCH (09:28)
[2022-08-14] MEDS: Amlodipine 10 MG TAB PO SCH (09:28)
[2022-08-14] MEDS: Folic Acid 1 MG TAB PO SCH (09:29)
[2022-08-14] MEDS: Lisinopril 20 MG TAB PO SCH (09:29)
[2022-08-14] MEDS: Erythromycin Base 0.5% Oint 1 GM TUBE EA EYE SCH ×4 (09:30→21:43)
[2022-08-14] MEDS: Terbinafine 1% 30 GM TUBE TOP SCH ×2 (09:30→21:43)
[2022-08-14] MEDS: Thiamine 100 MG TAB PO SCH (21:42)
[2022-08-14] MEDS: Acetaminophen 325 MG TAB PO PRN (21:42)
[2022-08-14] MEDS: Nicotine 14 MG PATCH TD SCH (21:43)
[2022-08-15] MEDS: Amlodipine 10 MG TAB PO SCH (10:43)
[2022-08-15] MEDS: Multivit, Therapeutic 1 TAB PO SCH (10:43)
[2022-08-15] MEDS: Cyanocobalamin (Vitamin B-12) 1,000 MCG TAB PO SCH (10:44)
[2022-08-15] MEDS: Famotidine 20 MG TAB PO SCH ×2 (10:44→20:05)
[2022-08-15] MEDS: Meclizine HCl 25 MG TAB PO SCH (10:45)
[2022-08-15] MEDS: Folic Acid 1 MG TAB PO SCH (10:45)
[2022-08-15] MEDS: Erythromycin Base 0.5% Oint 1 GM TUBE EA EYE SCH ×4 (10:46→20:06)
[2022-08-15] MEDS: Terbinafine 1% 30 GM TUBE TOP SCH ×2 (10:47→20:06)
[2022-08-15] MEDS: Lisinopril 20 MG TAB PO SCH (10:48)
[2022-08-15] MEDS: HYDROcodone/Acetaminophen 5/325 mg Tablet PO PRN (13:37)
[2022-08-15] MEDS: Thiamine 100 MG TAB PO SCH (20:05)
[2022-08-15] MEDS: Nicotine 14 MG PATCH TD SCH (21:35)
[2022-08-16] MEDS: Multivit, Therapeutic 1 TAB PO SCH (08:31)
[2022-08-16] MEDS: Cyanocobalamin (Vitamin B-12) 1,000 MCG TAB PO SCH (08:31)
[2022-08-16] MEDS: Amlodipine 10 MG TAB PO SCH (08:31)
[2022-08-16] MEDS: Lisinopril 20 MG TAB PO SCH (08:31)
[2022-08-16] MEDS: Meclizine HCl 25 MG TAB PO SCH (08:31)
[2022-08-16] MEDS: Famotidine 20 MG TAB PO SCH (08:31)
[2022-08-16] MEDS: Folic Acid 1 MG TAB PO SCH (08:31)
[2022-08-16] MEDS: Terbinafine 1% 30 GM TUBE TOP SCH (08:32)
[2022-08-16] MEDS: Erythromycin Base 0.5% Oint 1 GM TUBE EA EYE SCH ×2 (08:32→12:36)
[2022-08-16] MEDS: HYDROcodone/Acetaminophen 5/325 mg Tablet PO PRN (08:42)
[2022-08-16 16:39] VITALS: BP 102/60; TEMP 98.2
== END 2022-08-16 17:27 | DRG 554 ==
LOC: ERS 17:11 → ERHOLD 20:20 → 2NO 08-08 16:06 → T4-B 08-15 17:02
PROVIDERS: ADMIT Hospitalist; ATTEND Hospitalist
DX: M16.12 Unilateral primary osteoarthritis, left hip (principal); E87.1 Hypo-osmolality and hyponatremia; M86.8X7 Other osteomyelitis, ankle and foot; Z20.822 Contact with and (suspected) exposure to COVID-19; I10 Essential (primary) hypertension; M10.9 Gout, unspecified; F10.20 Alcohol dependence, uncomplicated; B35.1 Tinea unguium; I89.0 Lymphedema, not elsewhere classified; Z79.899 Other long term (current) drug therapy; Z79.82 Long term (current) use of aspirin
CPT/HCPCS: 36415; 70450; 71045; 72170; 80048; 80053; 80202; 80306; 81003; 82140; 82550; 83036; 83605; 83735; 83880; 84100; 84484; 85025; 85610; 85730; 86780; 87040; 87086; 87811; 93005; 94760; 96365; 96366; 96367; 96368; 96375; 97139; J0692; J1650; J1885; J3370; J3411; J3475; J3490; U0002

== ENCOUNTER 2022-12-14 06:49 | Observation (INO) | payer MEDICARE ==
[2022-12-09 14:08] VITALS: BMI 26.6
[2022-12-14] MEDS ORDERED: Tranexamic Acid 1,000 MG/10 ML VIAL ONE (07:16)
[2022-12-14] MEDS ORDERED: Sodium Chloride 0.9% 100 ML ONE ×2 (07:16→10:15)
[2022-12-14] MEDS ORDERED: Vancomycin 1 GM/200 ML (FROZEN) BAG ONE (07:16)
[2022-12-14] MEDS ORDERED: Bupivacaine PF 0.5% 30 ML VIAL ONE ×2 (08:05→10:07)
[2022-12-14] MEDS ORDERED: Midazolam HCl 2 mg/2 ml Vial ONE ×2 (08:05→11:13)
[2022-12-14] MEDS ORDERED: fentaNYL 50 mcg/mL 1 mL Vial ONE ×3 (08:05→10:59)
[2022-12-14] MEDS ORDERED: Ondansetron PF 4 MG/2 ML Vial IVP PRN (10:07)
[2022-12-14] MEDS ORDERED: Promethazine HCl 25 MG/ML VIAL IM PRN (10:07)
[2022-12-14] MEDS ORDERED: Acetaminophen 325 MG TAB PO PRN (10:07)
[2022-12-14] MEDS ORDERED: HYDROcodone/Acetaminophen 10/325 mg Tablet PO PRN ×2 (10:07)
[2022-12-14] MEDS ORDERED: Zolpidem Tartrate 5 MG TAB PO PRN (10:07)
[2022-12-14] MEDS ORDERED: diphenhydrAMINE 25 MG CAP PO PRN (10:07)
[2022-12-14] MEDS ORDERED: fentaNYL 50 mcg/mL 1 mL Vial SLOW IVP PRN (10:07)
[2022-12-14] MEDS ORDERED: Colchicine 0.6 MG TAB PO PRN (10:08)
[2022-12-14] MEDS ORDERED: CEFAZOLIN 2 GM VIAL ONE (10:15)
[2022-12-14] MEDS ORDERED: Ondansetron PF 4 MG/2 ML Vial ONE (10:43)
[2022-12-14] MEDS ORDERED: PROPOFOL 200 MG/20 ML VIAL ONE (10:43)
[2022-12-14] MEDS ORDERED: Bupivacaine HCl 0.5%/Epinephrine 1:200,000/PF 30 ml Vial ONE (10:43)
[2022-12-14] MEDS ORDERED: HYDROmorphone 2 MG/ML VIAL ONE (11:27)
[2022-12-14] MEDS: Sodium Chloride 0.9% 1,000 ML IV SCH ×3 (16:32→20:13)
[2022-12-14] MEDS: Ketorolac Tromethamine 30 MG/ML VIAL IVP SCH ×2 (16:36→21:46)
[2022-12-14] MEDS: CEFAZOLIN 2 GM in Sodium Chloride 0.9% 100 ML IVPB SCH (17:58)
[2022-12-14] MEDS: Aspirin 81 mg Enteric Coated Tablet PO SCH (20:06)
[2022-12-15] MEDS: CEFAZOLIN 2 GM in Sodium Chloride 0.9% 100 ML IVPB SCH (02:07)
[2022-12-15] MEDS: Ketorolac Tromethamine 30 MG/ML VIAL IVP SCH (05:01)
[2022-12-15] MEDS: Sodium Chloride 0.9% 1,000 ML IV SCH (05:06)
[2022-12-15 06:10] LABS: Hemoglobin 10.2 g/dL (14.0-18.0); Mean Corpuscular HGB CONC 32.6 g/dL (32.0-36.0); Mean Corpuscular Hemoglobin 29.7 pg (27.0-31.0); Mean Corpuscular Volume 91.3 fl (78.0-98.0); Platelet Count 166 10x3/uL (130-400); RBC Distribution Width 13.5 % (11.5-14.5); Red Blood Cell (RBC) Count 3.43 mill/uL (4.70-6.10); White Blood Cell (WBC) Count 6.1 10x3/uL (4.8-10.8)
[2022-12-15] MEDS ORDERED: Ferrous Gluconate 324 MG TAB PO SCH (08:00)
[2022-12-15] MEDS: Aspirin 81 mg Enteric Coated Tablet PO SCH (08:33)
[2022-12-15] MEDS ORDERED: Senokot S 8.6-50 MG TAB PO SCH (09:00)
[2022-12-15] MEDS ORDERED: CYANOCOBALAMIN PO SCH (09:00)
[2022-12-15] MEDS ORDERED: Lisinopril 20 MG TAB PO SCH (09:00)
[2022-12-15] MEDS ORDERED: Multivitamin W/ Minerals 1 TAB PO SCH (09:00)
[2022-12-15] MEDS ORDERED: Allopurinol 300 MG TAB PO SCH (09:00)
[2022-12-15] MEDS ORDERED: Aspirin 81 mg Enteric Coated Tablet PO SCH (09:00)
[2022-12-15] MEDS ORDERED: FOLIC ACID PO SCH (09:00)
[2022-12-15 11:59] VITALS: BP 126/67; TEMP 98.2
== END 2022-12-15 11:59 | disposition home or self-care (01) ==
LOC: SDC 06:49 → SURG B 13:29 → SDC 15:32
PROVIDERS: ADMIT Orthopaedic Surgery; ATTEND Orthopaedic Surgery
PROC: 0SRB0JZ Replacement of Left Hip Joint with Synthetic Substitute, Open Approach (ICD-10-PCS; principal; 2022-12-14)
DX: M16.12 Unilateral primary osteoarthritis, left hip (principal); I10 Essential (primary) hypertension; M10.9 Gout, unspecified; F17.210 Nicotine dependence, cigarettes, uncomplicated; Z79.82 Long term (current) use of aspirin; Z79.899 Other long term (current) drug therapy
CPT/HCPCS: 27130; 73502; 85027; 97110 ×2; 97116 ×2; 97530 ×3; 97535; C1776; J3010; J3370; 36415; J1170; J1885; J2250; J2405; J2704; J3490; J7050; S0020